=== PATIENT | female | born 1980 | race Hispanic/Latino ===

== ENCOUNTER 2018-07-01 10:34 | Emergency (ER) | payer OTHER ==
[2018-07-01 11:11] LABS: KETONE, URINE AUTO RFX NEGATIVE (NEGATIVE); LEUKOCYTE ESTERASE UR AUTO RFX NEGATIVE (NEGATIVE); MUCUS, URINE RFX SMALL (NEGATIVE); NITRITE, URINE AUTO RFX NEGATIVE (NEGATIVE); RBC, URINE AUTO RFX 0 /HPF (0-3); SPECIFIC GRAVITY UR AUTO RFX 1.028 (1.002-1.035); SQUAM EPITHELIAL CELL UR AURFX 3 /HPF (0-6); WBC, URINE AUTO RFX 1 /HPF (0-3)
[2018-07-01] MEDS: ACETAMINOPHEN 325 MG TAB PO (11:12)
[2018-07-01] MEDS: PHENAZOPYRIDINE 100 MG TAB PO (11:12)
[2018-07-01] MEDS: KETOROLAC 60 MG/2 ML VIAL (J1885) IM (11:38)
== END 2018-07-01 13:12 | disposition home or self-care (01) ==
LOC: M ED 10:34
DX: D25.9 Leiomyoma of uterus, unspecified (principal)
CPT/HCPCS: J1885

== ENCOUNTER → 2018-08-10 | Outpatient (REF) | payer OTHER ==
[2018-08-10 12:17] LABS: HEMATOCRIT 42.3 % (36.0-47.0); HEMOGLOBIN 13.9 g/dl (12.0-15.5); MEAN CORPUSCULAR HGB CONC 32.9 g/dl (32.0-36.5); MEAN CORPUSCULAR VOLUME 94.2 fl (80.0-96.0); PLATELET COUNT, AUTOMATED 206 10^3/uL (150-450); RED BLOOD COUNT 4.49 10^6/uL (4.00-5.40); RED CELL DISTRIBUTION WIDTH 12.4 % (11.5-14.5); WHITE BLOOD COUNT 4.3 10^3/uL (4.0-10.0)
[2018-08-10 12:35] LABS: ALBUMIN 3.6 GM/DL (3.2-5.2); ALKALINE PHOSPHATASE 55 U/L (45-117); ALT/SGPT 24 U/L (12-78); ANION GAP 6 MEQ/L (8-16); AST/SGOT 15 U/L (7-37); BILIRUBIN,TOTAL 0.4 MG/DL (0.2-1.0); BLOOD UREA NITROGEN 11 MG/DL (7-18); CALCIUM LEVEL 8.5 MG/DL (8.5-10.1); CARBON DIOXIDE LEVEL 28 MEQ/L (21-32); CHLORIDE LEVEL 110 MEQ/L (98-107); CHOLESTEROL LEVEL 238 MG/DL (<200); CREATININE FOR GFR 0.63 MG/DL (0.55-1.30); FREE T4 0.94 NG/DL (0.76-1.46); GLOMERULAR FILTRATION RATE > 60.0 (>60); GLUCOSE, FASTING 96 MG/DL (70-100); HDL CHOLESTEROL 53 MG/DL (>40); LDL CHOLESTEROL 170 MG/DL (<100); NON-HDL-C 185 MG/DL; POTASSIUM SERUM 4.5 MEQ/L (3.5-5.1); SODIUM LEVEL 144 MEQ/L (136-145); TOTAL PROTEIN 6.6 GM/DL (6.4-8.2); TRIGLYCERIDES LEVEL 76 MG/DL (<150)
== END ==
LOC: M SFHCPLAZ 08:12
DX: Z00.00 Encounter for general adult medical examination without abnormal findings (principal); Z13.220 Encounter for screening for lipoid disorders

== ENCOUNTER → 2018-09-22 | Outpatient (REF) | payer OTHER ==
[~2018-09-22] MED LIST: IBUP80TA PO
[2018-09-24 15:11] LABS: HPV HYBRID CAPTURE II Negative (Negative)
== END ==
LOC: M SFHCPLAZ 13:44
PROVIDERS: ATTEND Physician Assistant
DX: Z12.4 Encounter for screening for malignant neoplasm of cervix (principal)

== ENCOUNTER → 2020-10-02 | Outpatient (CLI) | payer OTHER ==
--- NOTE | 2020-10-02 12:39 | REP ---
INDICATION: Z12.39 SCREENING MAMMO. COMPARISON: None, baseline study. TECHNIQUE: MLO and CC views of bilateral breasts performed with tomosynthesis. FINDINGS: Mild scattered fibroglandular tissue is seen bilaterally. In the lower outer left breast there is a well-defined and smoothly marginated 5 mm nodule. No other mass is seen bilaterally. There are no clustered microcalcifications. The [place] volumetric breast density pattern is A. IMPRESSION: BIRADS/ACR category 0, incomplete. Smoothly marginated 5 mm nodule inferolateral left breast. Recommend spot compression views and ultrasound to further evaluate. This patient's Tyrer-Cuzick lifetime breast cancer risk assessment score is 9.8%. This mammogram was interpreted with the aid of an FDA-approved computer-aided detection system. The patient states she had a clinical breast exam in over 1 year ago. The patient letter being requested is M0. RECOMMENDATION: Recommend spot compression views and ultrasound left breast. <Electronically signed by Girish Godwin > 10/02/20 [id number]
== END ==
LOC: M WHC 11:55
PROVIDERS: ATTEND Nurse Practitioner Family
DX: R92.8 Other abnormal and inconclusive findings on diagnostic imaging of breast (principal); N63.23 Unspecified lump in the left breast, lower outer quadrant

== ENCOUNTER → 2020-10-11 | Outpatient (CLI) | payer OTHER ==
--- NOTE | 2020-10-11 16:30 | REP ---
INDICATION: ADDL VIEWS/LEFT BREAST NODULE. COMPARISON: 10/02/2020. TECHNIQUE: Spot compression views left breast performed as well as focused left breast ultrasound infero laterally. FINDINGS: A smoothly marginated, well-defined 5 mm nodule is confirmed inferiorly and slightly laterally in the left breast. This is approximately 6 cm from the nipple. Focused left breast ultrasound inferiorly demonstrates a simple cyst measuring 4 x 5 x 2 mm at 6 o'clock about 8 cm from the nipple. IMPRESSION: BIRADS/ACR category 2, benign. Smoothly marginated 5 mm nodule inferior left breast likely corresponds to the cyst identified inferiorly in the left breast by ultrasound. Recommend follow-up mammogram in 1 year. This mammogram was interpreted with the aid of an FDA-approved computer-aided detection system. The patient letter being requested is M 1. RECOMMENDATION: Repeat screening mammography recommended 1 year (for women over 40). <Electronically signed by Girish Godwin > 10/11/20 [id number]
== END ==
LOC: M WHC 11:00
PROVIDERS: ATTEND Nurse Practitioner Family
DX: R92.8 Other abnormal and inconclusive findings on diagnostic imaging of breast (principal); N63.25 Unspecified lump in the left breast, overlapping quadrants; N60.02 Solitary cyst of left breast
CPT/HCPCS: 76642; 77065; G0279

== ENCOUNTER 2023-01-18 13:55 | Emergency (ER) | payer OTHER ==
[~2023-01-18] VITALS: Ht 154.9 cm; Wt 85.5 kg
[2023-01-18 13:55] VITALS: BP 137/89
[2023-01-18] MEDS ORDERED: ACET-683 PO (14:10)
[2023-01-18] MEDS ORDERED: MACR100C43 PO (17:00)
[2023-01-18] MEDS ORDERED: KETOROLAC 60MG 2ML VIAL IM ONE (17:20)
[2023-01-18 18:52] LABS: GC DNA AMPLIFICATION NEGATIVE (NEGATIVE)
== END 2023-01-18 17:38 | disposition home or self-care (01) ==
LOC: M ED 13:55
DX: R30.0 Dysuria (principal)
CPT/HCPCS: 81001; 87086; 87810; 87850; 96372; 99282; J1885

== ENCOUNTER → 2024-05-24 | Outpatient (REF) | payer OTHER ==
[~2024-05-24] MED LIST changes: +ACET-683 PO; +MACR100C43 PO
[2024-05-24 18:38] LABS: AMORPHOUS SEDIMENT SMALL (NEGATIVE); APPEARANCE, URINE CLEAR (CLEAR); BACTERIA, URINE AUTO NEGATIVE (NEGATIVE); BILIRUBIN, URINE AUTO NEGATIVE (NEGATIVE); BLOOD, URINE BLOOD NEGATIVE (NEGATIVE); COLOR, URINE YELLOW (YELLOW); GLUCOSE, URINE (UA) AUTO NEGATIVE (NEGATIVE); KETONE, URINE AUTO NEGATIVE (NEGATIVE); LEUKOCYTE ESTERASE, URINE AUTO NEGATIVE (NEGATIVE); MUCUS, URINE SMALL (NEGATIVE); NITRITE, URINE AUTO NEGATIVE (NEGATIVE); PROTEIN, URINE AUTO NEGATIVE (NEGATIVE); RBC, URINE AUTO 0 /HPF (0-3); SPECIFIC GRAVITY URINE AUTO 1.019 (1.002-1.035); SQUAMOUS EPITHELIAL CELL UR AU 0 /HPF (0-6); UROBILINOGEN, URINE AUTO 0.2 mg/dL (0.0-2.0); WBC, URINE AUTO 0 /HPF (0-3)
== END ==
LOC: M SMT 17:20
PROVIDERS: ATTEND Urology
DX: N20.1 Calculus of ureter (principal)